=== PATIENT | male | born 1995 | race Caucasian/White ===

== ENCOUNTER 2016-11-23 18:00 | Emergency (ER) | payer SELFPAY ==
--- NOTE | ~2016-11-23 | CR72 ---
[facility] A Service of [facility] RADIOLOGY TEXT RESULTS PATIENT: JOSE MANUEL GALICIA LOCATION: CFTX : 95 UNIT #: [id number] AGE: [address]: EVARISTO GOODEN APRN SEX: M ORDER DR: [id number] [facility] [address]. [place], [place] [address] [id number] E MR#: [id number] Acc #: [id number] NAME: JOSE MANUEL GALICIA : 1995 SEX: M STUDY DATE/TIME: 11/23/2016 19:37 UNIT: CFTX ROOM: STUDY DESCRIPTION: CR Chest Single View Portable Attending Physician: Evaristo Gooden Aprn Ordering Physician: Evaristo Gooden Aprn Primary Care Physician: No Primary Care Physician MEDICAL IMAGING REPORT This report is preliminary unless electronic signature is present EXAM Portable chest, 11/23/16. INDICATION Flu-like symptoms with cough, congestion and chills for one week. FINDINGS AP portable chest was obtained. No comparison. Cardiac and mediastinal contours are normal. Left lung is clear. On the right, there is infiltrate in the mid-lung compatible with pneumonia, and there is a trace amount of right pleural fluid. No pneumothorax. IMPRESSION Right mid-lung pneumonia with a trace amount of right pleural fluid. Dictated by... Clayton Bethea Jr., M.D. THIS IS AN ELECTRONICALLY VERIFIED REPORT Clayton Bethea Jr., M.D. at 11/24/2016 12:58 PM ROBSON/yolande TD: 11/23/2016 22:59 JOB #: [id number] MEDICAL IMAGING REPORT Page 1 of 1 COPY
[~2016-11-23 18:00] MED LIST: ADVAIR 1001 DISK W/D PO
== END 2016-11-23 20:26 | disposition home or self-care (01) ==
LOC: CFTX 18:00 → CED 18:00 → CFTX 19:31
DX: J18.9 Pneumonia, unspecified organism (principal)
CPT/HCPCS: 71010; 99283